=== PATIENT | male | born 1945 | race Caucasian/White ===

== ENCOUNTER 2024-09-01 06:22 | Day surgery (SDC) | payer OTHER ==
[2024-08-27 11:12] LABS: PT Prothrombin Time 12.1 SECONDS (9.4-12.5); PTT, Activated Partial Thromb 33.7 SECONDS (24.3-36.9); Protime INR 1.08
--- NOTE | 2024-08-27 12:49 | RAD REPORT ---
EXAMINATION: TWO VIEW CHEST XR CLINICAL INDICATION: Male, 79 years old. [facility] pre op pending groin lymph node biopsy. Hypertension TECHNIQUE: 2 view radiographs of the chest were performed. COMPARISON: 07/25/2008 FINDINGS: The lungs are well inflated. Right perihilar streaky opacities. No pneumothorax or sizable effusion. The heart is normal in size. 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 IMPRESSION: Right perihilar streaky opacities, may reflect atelectasis, focal pneumonia, or a mass.
--- NOTE | 2024-08-30 12:04 | EKG ---
Test Date: 2024-08-27 Test Time: 11:25:43 Clinical Administrative Coordinator: KIMBERLY MEASUREMENT RESULTS: Intervals: Rate: 64 KS: 110 QRSD: 162 QT: 468 QTc: 482 [place]: P: 95 KS: 110 QRS: -90 T: 62 INTERPRETIVE STATEMENTS: Electronic ventricular pacemaker Compared to ECG 07/25/2008 11:56:51 Sinus rhythm no longer present Electronically Signed On 08-30-24 12:01:54 STATE INSPECTOR by Zack Hernandez
[2024-09-01] MEDS ORDERED: CEFAZOLIN SODIUM 1 GM/VIAL ONE (06:47)
[2024-09-01] MEDS: Ringers Lactate 1,000 ML IV ONE (06:55)
[2024-09-01] MEDS ORDERED: BUPIVACAINE 0.5% PF 10 ML VIAL ONE (07:07)
[2024-09-01] MEDS ORDERED: propofoL 200 MG/20 ML VIAL IV ONE (07:18)
[2024-09-01] MEDS ORDERED: ONDANSETRON 4 MG/2 ML VIAL ONE (07:18)
[2024-09-01] MEDS ORDERED: LIDOCAINE 2% MPF 5 ML VIAL ONE (07:18)
[2024-09-01] MEDS ORDERED: FENTANYL CITR 100 MCG/2 ML ONE (07:18)
[2024-09-01] MEDS ORDERED: dexAMETHasone 10 MG/ML VIAL ONE (07:36)
[2024-09-01] MEDS: CIPROFLOXACIN 400mg IV 400 MG/200 ML BAG IV ONE (07:39)
[2024-09-01] MEDS ORDERED: EPHEDRINE SULF 50 MG/ML VIAL ONE (07:39)
[2024-09-01] MEDS: BUPIVACAINE 0.5% PF 10 ML VIAL ONE (08:12)
[2024-09-01] MEDS ORDERED: Mastisol Adhesive Liq ONE (08:16)
--- NOTE | 2024-09-01 08:31 | P.OP ---
Date of Service: 09/01/24 Preop diagnosis: Left groin mass Postop diagnosis: Same Procedure performed: Excision of left groin mass, utilization of ultrasound kar cole Surgeon: Rodriguez Bishop MD In House Counsel: Ana FITZGERALD Estimated blood loss: Minimal Specimen: Left groin mass Findings: Enlarged lymph node Anesthesia: General Complications: None none Drains: None Fluids and blood products: Nonapplicable Disposition: Recovery room Operative note: Patient brought to the OR and placed in supine position. General anesthesia began. Left leg placed in the frog-leg position. Patient prepped and draped in usual sterile fashion. Ultrasound device used to isolate a enlarged lymph node in the left groin. A 3 cm oblique incision made in the left groin below the inguinal crease. Subcutaneous tissue divided and bleeding controlled with cautery. Deep to subcutaneous tissue enlarged lymph node identified. All neurovascular attachments divided between shayy and clamps. Pedicles tied with 2-0 silk ties. Specimen removed and sent to pathology fresh for culture, mycobacteria, fungus and pathology. Wound irrigated and bleeding controlled cautery. 3-0 chromic used to reapproximate subcutaneous tissue and close skin. Sterile dressing applied. Patient awakened and taken to recovery room in good general condition. CC: Dr. Cruz's office
[2024-09-01 09:36] VITALS: BP 113/63; TEMP 97.4; O2SAT 97
== END 2024-09-01 09:43 | disposition home or self-care (01) ==
LOC: OR 06:22
PROVIDERS: ATTEND Surgery
PROC: 07BJ0ZX Excision of Left Inguinal Lymphatic, Open Approach, Diagnostic (ICD-10-PCS; principal; 2024-09-01 07:30)
DX: C85.15 Unspecified B-cell lymphoma, lymph nodes of inguinal region and lower limb (principal); D48.5 Neoplasm of uncertain behavior of skin; R59.0 Localized enlarged lymph nodes; C34.91 Malignant neoplasm of unspecified part of right bronchus or lung; I25.10 Atherosclerotic heart disease of native coronary artery without angina pectoris; I10 Essential (primary) hypertension; I48.11 Longstanding persistent atrial fibrillation; Z95.1 Presence of aortocoronary bypass graft
CPT/HCPCS: 93005; 87070; 36415; 87205; 85610; 88305; 85730; 87075; 87176; 87102; 71046; 11602; J2704; J2003; J3010; J1100; J2405; J0744; J7120; 88304; J0690